=== PATIENT | male | born 2005 | race American Indian/Alaskan Native ===

== ENCOUNTER 2025-06-26 01:06 | Emergency (ER) | payer SELFPAY ==
[2025-06-26 01:32] VITALS: BP 105/55; PULSE 70; RESP 15; TEMP 37.2; O2SAT 95; BMI 29.2
--- NOTE | 2025-06-26 01:50 | ED_ITS ---
HPI - URI/Sore Throat General Chief Complaint: Upper Respiratory Symptoms Stated Complaint: Cough, Fever Time Seen by Provider: 06/26/25 01:13 Source: patient Mode of arrival: Ambulatory History of Present Illness HPI Narrative: 20-year-old male with recent cough, with similar duration and quality of symptoms, denies shortness of breath, no specific medications have been tried. No history of asthma or chronic lung/heart disease. No recent exposure to antibiotics recalled. Other family members in household asymptomatic. Subjective fever not measured. Denies chest pain. Related Data Previous Rx's ?Medication ?Instructions ?Recorded benzonatate 100 mg capsule 100 mg PO BID-TID PRN cough #14 06/26/25 caps Allergies Allergy/AdvReac Type Severity Reaction Status Date / Time No Known Drug Allergies Allergy Verified 06/26/25 01:33 Patient History Social History Smoking Status: Never smoker Smoking Status: Never smoker Exam Narrative Exam Narrative: GENERAL: Well-developed patient, in mild distress. HEAD: Atraumatic. Normocephalic. EYES: Pupils equal round and reactive. Extraocular motions intact. No scleral icterus. No injection or drainage. ENT: Nose without bleeding, purulent drainage. Throat without erythema, tonsillar hypertrophy or exudate. Airway patent. NECK: Trachea midline. Non tender CARDIOVASCULAR: Regular rate and rhythm without murmurs, gallops, or rubs. RESPIRATORY: Clear to auscultation. Breath sounds equal bilaterally. No wheezes, rales, or rhonchi. GASTROINTESTINAL: Abdomen soft, non-tender, nondistended. EXTREMITIES: No edema or joint tenderness. BACK: Nontender without deformity or crepitance. No flank tenderness. NEURO: AOx3. Motor functions grossly nonfocal. SKIN: No rash or erythema of visible areas Initial Vital Signs Initial Vital Signs: Vital Signs Temperature 99.0 F 06/26/25 01:32 Pulse Rate 70 06/26/25 01:32 Respiratory Rate 15 06/26/25 01:32 Blood Pressure 105/55 L 06/26/25 01:32 Pulse Oximetry 95 06/26/25 01:32 Oxygen Delivery Method Room Air 06/26/25 01:32 Course Orders Ordered: ED Orders 06/26/25 01:39 Covid-19 + FLU A/B + RSV - PCR Stat Discontinued Medications Benzonatate (Benzonatate 100 Mg Capsule) 100 mg PO NOW ONE Stop: 06/26/25 01:55 Last Admin: 06/26/25 02:01 Dose: 100 mg Documented By: RAJNI Vital Signs Vital signs: Vital Signs - 8 hr 06/26/25 01:32 Temperature 99.0 F Pulse Rate 70 Respiratory Rate 15 Blood Pressure 105/55 L Pulse Oximetry 95 Oxygen Delivery Method Room Air MDM - URI/Sore Throat Lab Data Attestation: I reviewed the patient's lab results. Lab results narrative: COVID influenza RSV negative. Labs: Lab Results 06/26/25 Range/Units 01:39 SARS-CoV-2 (PCR) Negative (Negative) Influenza A (RT-PCR) Flu a negative (NEGATIVE) Influenza B (RT-PCR) Flu b negative (NEGATIVE) RSV (PCR) Negative (Negative) MDM Narrative Medical decision making narrative: 20-year-old male here with , both have multi day upper respiratory viral symptoms. Afebrile, sirs screen negative, normal oxygenation on room air, no respiratory distress, lungs clear. COVID influenza RSV swab negative. Offered Tessalon, given oral dose, prescription sent to his pharmacy. Advised to plenty of oral fluids, take Tylenol as needed for pain and/or fever. Recheck advised with PCP if symptoms persist next few days, return precautions discussed. Discharged home with family. Discharge Plan Departure Patient Disposition: Home Clinical Impression: Upper respiratory infection Activity Restrictions/Additional Instructions: Recent cough, with similar symptoms. No fever on triage, lungs clear without wheezing or crackles on examination, with normal room air oxygen level. Swab for COVID influenza RSV viruses were negative. Trial of Tessalon b enzonatate medication to help with cough control symptoms, 1st oral dose given, prescription sent for further doses to use as needed for control of cough symptoms. Recheck symptoms with your regular doctor if not improving in the next few days. Drink plenty of fluids. Take Tylenol and or Motrin as needed for fever control. Return to this/nearest emergency department for any change worsening symptoms or concerns prior. Prescriptions: New benzonatate 100 mg capsule 100 mg PO BID-TID PRN (Reason: cough) Qty: 14 0RF Stand Alone Forms: Patient Portal/API, Work Release Note
[2025-06-26] MEDS: BENZONATATE 100 MG CAPSULE PO (02:01)
[2025-06-26 02:21] LABS: Influenza A - CEPHEID Flu A NEGATIVE (NEGATIVE); Influenza B - CEPHEID Flu B NEGATIVE (NEGATIVE)
[2025-06-26 02:26] LABS: COVID-19 CEPHEID 4-PLEX PCR Negative (Negative)
== END 2025-06-26 02:46 | disposition home or self-care (01) ==
PROVIDERS: Emergency Provider Emergency Medicine
DX: J06.9 Acute upper respiratory infection, unspecified (principal)
CPT/HCPCS: 87637; 99283